=== PATIENT | male | born 1940 ===

== ENCOUNTER → 2019-04-15 | Outpatient (CLI) | payer OTHER ==
[~2019-04-15] MED LIST: COZAAR100 MG
== END | disposition home or self-care (01) ==
LOC: NUCLEAR 11:00
DX: R55 Syncope and collapse (principal)

== ENCOUNTER → 2019-09-07 09:21 | Outpatient (CLI) | payer OTHER | END | disposition home or self-care (01) | LOC: RAD 09:21 → LAB 09:21 | DX: D64.89 Other specified anemias (principal); J44.9 Chronic obstructive pulmonary disease, unspecified ==

== ENCOUNTER 2019-11-25 09:38 | Outpatient (CLI) | payer OTHER | END 2019-11-25 12:31 | disposition home or self-care (01) | LOC: LAB 09:38 | DX: J11.1 Influenza due to unidentified influenza virus with other respiratory manifestations (principal); D64.0 Hereditary sideroblastic anemia ==